=== PATIENT | male | born 1935 | race Caucasian/White ===

== ENCOUNTER 2017-10-13 17:38 | Inpatient (IN) | payer MEDICARE, OTHER ==
[2017-10-13] VITALS (7 sets, daily range): BP systolic 115–156; BP diastolic 51–97
[~2017-10-13] VITALS: Ht 177.8 cm; Wt 88.3 kg
[~2017-10-13 17:38] MED LIST: COREG CR10 MG PO; COREG25 MG PO; Coumadin5 MG PO; JANTOVEN1 MG PO; LANOXIN0.125 MG PO; LASIX20 MG PO; LISINOPRIL2.5 MG PO; NEXIUM40 MG PO; POTASSIUM99 M5 PO; SPIRIVA -- 3018 MCG INH; SYMBICORT1 AE1 INH; SYNTHROID,LEVO50 MCG PO; TERAZOSIN HCL2 M1 PO; VITAMIN D2000 IU PO
[2017-10-13 18:25] LABS: BASO % 0.2 % (0.0-1.0); EOS # 0.2 10*3/uL (0.0-0.4); EOS % 1.3 % (1.0-4.0); HEMATOCRIT 44.2 % (42.0-52.0); HEMOGLOBIN 14.8 g/dl (14.0-18.0); LYMPH # 1.7 10*3/uL (1.3-4.4); LYMPH % 9.3 % (27.0-41.0); MEAN CELL VOLUME 88.8 fl (80.0-94.0); MEAN CORPUSCULAR HGB 29.7 pg (27.0-31.0); MEAN CORPUSCULAR HGB CONC 33.5 g/dl (33.0-37.0); MEAN PLATELET VOLUME 9.6 fl (9.6-12.3); MONO # 1.1 10*3/uL (0.1-1.0); MONO % 6.1 % (3.0-9.0); NEUT # 14.8 10*3/uL (2.3-7.9); NEUT % 82.5 % (47.0-73.0); PLATELET COUNT AUTOMATED 218 10*3/uL (130-400); RED BLOOD COUNT 4.98 10*6/uL (4.50-5.90); RED CELL DISTRI WIDTH 14.3 % (0-14.5); WHITE BLOOD COUNT 17.9 10*3/uL (4.8-10.8)
[2017-10-13 18:39] LABS: ACT PARTIAL THROMBO TIME 32.7 SECONDS (20.8-31.5); INTERNATIONAL NORM RATIO 2.3 (2.0-3.5)
[2017-10-13 18:44] LABS: ALBUMIN 3.7 gm/dl (3.1-4.5); ALKALINE PHOSPHATASE 91 U/L (45-117); BUN 20 mg/dl (7-24); CHLORIDE 105 mmol/L (98-107); CREATININE 1.48 mg/dL (0.70-1.30); LIPASE 157 U/L (73-393); POTASSIUM 4.1 mmol/L (3.5-5.1); SGOT/AST 17 IU/L (3-35); SGPT/ALT 33 U/L (12-78); SODIUM 139 mmol/L (136-145); TOTAL PROTEIN 7.6 gm/dL (6.4-8.2)
[2017-10-13 18:51] LABS: TROPONIN I < 0.015 ng/ml (<0.045)
[2017-10-13 19:18] LABS: BILIRUBIN NEGATIVE (NEGATIVE); BLOOD NEGATIVE (NEGATIVE); CLARITY CLEAR (CLEAR); COLOR YELLOW (YELLOW); GLUCOSE NEGATIVE (NEGATIVE); KETONE NEGATIVE (NEGATIVE); LEUKO ESTERASE NEGATIVE (NEGATIVE); NITRITE NEGATIVE (NEGATIVE); UROBILINOGEN 0.2 E.U./dl (0.2-1.0)
[2017-10-13 19:24] LABS: BACTERIA TRACE
[2017-10-13] MEDS ORDERED: CARVEDILOL12.5 MG PO (23:59)
[2017-10-14] MEDS ORDERED: COUMADIN4 M2 PO (00:09)
[2017-10-14] MEDS ORDERED: CARDIZEM120 MG PO (00:11)
[2017-10-14] MEDS ORDERED: MACRODANTIN100 M1 PO (00:11)
[2017-10-14] MEDS ORDERED: SPIRIVA RESPIMAT4 G1 INH (00:14)
[2017-10-14] MEDS ORDERED: VITAMIN C1000 M5 PO (00:15)
[2017-10-14 06:20] LABS: BASO % 0.2 % (0.0-1.0); EOS # 0.1 10*3/uL (0.0-0.4); EOS % 1.4 % (1.0-4.0); LYMPH % 20.6 % (27.0-41.0); MEAN CELL VOLUME 89.7 fl (80.0-94.0); MEAN CORPUSCULAR HGB 29.5 pg (27.0-31.0); MEAN CORPUSCULAR HGB CONC 32.9 g/dl (33.0-37.0); MEAN PLATELET VOLUME 9.6 fl (9.6-12.3); MONO # 0.7 10*3/uL (0.1-1.0); MONO % 7.4 % (3.0-9.0); NEUT # 6.7 10*3/uL (2.3-7.9); NEUT % 70.1 % (47.0-73.0); PLATELET COUNT AUTOMATED 183 10*3/uL (130-400); RED BLOOD COUNT 4.07 10*6/uL (4.50-5.90); RED CELL DISTRI WIDTH 14.4 % (0-14.5); WHITE BLOOD COUNT 9.6 10*3/uL (4.8-10.8)
[2017-10-14 06:21] LABS: INTERNATIONAL NORM RATIO 2.3 (2.0-3.5)
[2017-10-14 06:28] LABS: HEMATOCRIT 36.5 % (42.0-52.0)
[2017-10-14 06:46] LABS: ALBUMIN 2.6 gm/dl (3.1-4.5); ALKALINE PHOSPHATASE 64 U/L (45-117); BUN 16 mg/dl (7-24); CHLORIDE 111 mmol/L (98-107); CHOLESTEROL 150 mg/dL (<200); CREATININE 1.08 mg/dL (0.70-1.30); HDL CHOLESTEROL 37 mg/dl (40-60); LDL CHOLESTEROL 90 mg/dL (9-159); PHOSPHOROUS 2.4 mg/dL (2.5-4.9); POTASSIUM 3.9 mmol/L (3.5-5.1); SGOT/AST 13 IU/L (3-35); SGPT/ALT 25 U/L (12-78); SODIUM 143 mmol/L (136-145); TOTAL PROTEIN 5.9 gm/dL (6.4-8.2); TRIGLYCERIDES 114 mg/dl (<150); VLDL CHOLESTEROL 23 mg/dL (6-40)
[2017-10-14 08:00] VITALS: BP 118/64
[2017-10-14 08:38] LABS: VITAMIN D, 25-HYDROXY 56.7 ng/mL (30-100)
[2017-10-14] MEDS ORDERED: VITAMIN D-32000 UNI1 PO (11:41)
[2017-10-14] MEDS ORDERED: B12,B-12,B 12500 MC1 PO (11:45)
== END 2017-10-14 12:50 | disposition home or self-care (01) | DRG 682 ==
LOC: ED 17:38 → 5E 20:42 → EDHOLD 20:42 → 5E 21:02
PROVIDERS: Hospitalist; Physician Assistant
DX: N17.0 Acute kidney failure with tubular necrosis (principal); E43 Unspecified severe protein-calorie malnutrition; I48.2 Chronic atrial fibrillation; E87.2 Acidosis; I48.91 Unspecified atrial fibrillation; J44.9 Chronic obstructive pulmonary disease, unspecified; E86.0 Dehydration; R73.9 Hyperglycemia, unspecified; E53.8 Deficiency of other specified B group vitamins; E03.8 Other specified hypothyroidism; N40.0 Benign prostatic hyperplasia without lower urinary tract symptoms; K52.9 Noninfective gastroenteritis and colitis, unspecified; Z90.49 Acquired absence of other specified parts of digestive tract; Z88.1 Allergy status to other antibiotic agents; Z88.2 Allergy status to sulfonamides; Z88.8 Allergy status to other drugs, medicaments and biological substances; Z79.01 Long term (current) use of anticoagulants; Z79.899 Other long term (current) drug therapy; Z82.3 Family history of stroke; Z82.49 Family history of ischemic heart disease and other diseases of the circulatory system; Z80.9 Family history of malignant neoplasm, unspecified; Z85.89 Personal history of malignant neoplasm of other organs and systems; Z87.891 Personal history of nicotine dependence; Z68.27 Body mass index [BMI] 27.0-27.9, adult

== ENCOUNTER → 2018-10-06 | Outpatient (CLI) | payer MEDICARE, OTHER ==
[~2018-10-06] MED LIST changes: +B12,B-12,B 12500 MC1 PO; +CARDIZEM120 MG PO; +CARVEDILOL12.5 MG PO; +COUMADIN4 M2 PO; +MACRODANTIN100 M1 PO; +SPIRIVA RESPIMAT4 G1 INH; +VITAMIN C1000 M5 PO; +VITAMIN D-32000 UNI1 PO
[2018-10-06 13:06] LABS: FREE T4 0.72 ng/dl (0.76-1.46)
[2018-10-06 13:12] LABS: THYROID STIM HORMONE (HS) 2.67 uIU/ml (0.358-4.75)
[2018-10-07 04:11] LABS: TOTAL PROTEIN, SERUM 6.4 g/dL (6.0-8.5)
[2018-10-07 15:09] LABS: A/G RATIO 1.1 (0.7-1.7); ALBUMIN 3.4 g/dL (2.9-4.4); ALPHA-1-GLOBULIN 0.2 g/dL (0.0-0.4); ALPHA-2-GLOBULIN 0.8 g/dL (0.4-1.0); BETA GLOBULIN 1.1 g/dL (0.7-1.3); GAMMA GLOBULIN 0.9 g/dL (0.4-1.8); M-SPIKE Not Observed g/dL (Not Observed)
== END | disposition home or self-care (01) ==
LOC: LAB 12:12
PROVIDERS: Psychiatry & Neurology Neurology
DX: G60.9 Hereditary and idiopathic neuropathy, unspecified (principal); R73.09 Other abnormal glucose; R29.898 Other symptoms and signs involving the musculoskeletal system

== ENCOUNTER → 2023-03-22 | Outpatient (CLI) | payer MEDICARE, OTHER ==
[~2023-03-22] MED LIST changes: +CIPRO500 MG PO; -COUMADIN4 M2 PO; +Coumadin2 MG PO; +OXYGEN NAS; +POTASSIUM CHLO10 ME5 PO; -POTASSIUM99 M5 PO; +TRELEGY ELLIPT1 EACH INH; +VITAMIN E400 UNIT PO
== END | disposition home or self-care (01) ==
LOC: RESCLI 02:55
PROVIDERS: ATTEND Student in an Organized Health Care Education/Training Program
DX: J44.9 Chronic obstructive pulmonary disease, unspecified (principal); I48.91 Unspecified atrial fibrillation; I10 Essential (primary) hypertension; K21.9 Gastro-esophageal reflux disease without esophagitis; K76.0 Fatty (change of) liver, not elsewhere classified; N40.0 Benign prostatic hyperplasia without lower urinary tract symptoms; J45.909 Unspecified asthma, uncomplicated; Z79.01 Long term (current) use of anticoagulants; Z79.899 Other long term (current) drug therapy

== ENCOUNTER → 2024-06-06 | Outpatient (CLI) | payer MEDICARE, OTHER | END | disposition home or self-care (01) | LOC: RESCLI 02:01 | PROVIDERS: ATTEND Internal Medicine | DX: I10 Essential (primary) hypertension (principal); J44.9 Chronic obstructive pulmonary disease, unspecified; I48.91 Unspecified atrial fibrillation; N40.0 Benign prostatic hyperplasia without lower urinary tract symptoms; E56.9 Vitamin deficiency, unspecified; R60.9 Edema, unspecified; K21.9 Gastro-esophageal reflux disease without esophagitis; K59.00 Constipation, unspecified; M19.90 Unspecified osteoarthritis, unspecified site; E78.5 Hyperlipidemia, unspecified; I25.10 Atherosclerotic heart disease of native coronary artery without angina pectoris; Z98.890 Other specified postprocedural states; Z79.899 Other long term (current) drug therapy; Z87.891 Personal history of nicotine dependence; Z88.1 Allergy status to other antibiotic agents; Z88.8 Allergy status to other drugs, medicaments and biological substances ==

== ENCOUNTER 2024-09-07 16:19 | Emergency (ER) | payer MEDICARE, OTHER ==
[2024-09-07 16:27] VITALS: BP 176/86
[2024-09-07] MEDS ORDERED: TRELEGY ELLIPT1 EACH PO (16:33)
[2024-09-07] MEDS ORDERED: LASIX20 MG PO (16:33)
[2024-09-07] MEDS ORDERED: TRAMADOL HCL50 MG PO (16:34)
[2024-09-07] MEDS ORDERED: CARDIZEM30 MG PO (16:34)
[2024-09-07] MEDS ORDERED: TERAZOSIN HCL2 M1 PO (16:35)
[2024-09-07] MEDS ORDERED: DIGOXIN125 MCG PO (16:35)
[2024-09-07] MEDS ORDERED: MORPHINE Sulfate 2 MG/ML SYR IV ONE (16:35)
[2024-09-07] MEDS ORDERED: methylPREDNISolone sod succ 125 MG VIAL IV ONE (16:35)
[2024-09-07] MEDS ORDERED: COREG3.125 MG PO (16:35)
[2024-09-07] MEDS ORDERED: Ondansetron Hydrochloride 4 MG/2 ML VIAL IV ONE (16:35)
[2024-09-07] MEDS ORDERED: SODIUM CHLORIDE 0.9% 1,000 ML IV ONE (16:35)
[2024-09-07] MEDS ORDERED: Coumadin2 MG PO (16:36)
[2024-09-07] MEDS ORDERED: POTASSIUM CHLO10 MEQ PO (16:46)
[2024-09-07 16:53] LABS: BASO % 0.5 % (0.0-1.0); EOS # 0.1 10*3/uL (0.0-0.4); EOS % 0.9 % (1.0-4.0); HEMATOCRIT 39.2 % (42.0-52.0); MEAN CELL VOLUME 90.5 fl (80.0-94.0); MEAN CORPUSCULAR HGB 29.3 pg (27.0-31.0); MEAN CORPUSCULAR HGB CONC 32.4 g/dl (33.0-37.0); MEAN PLATELET VOLUME 9.9 fl (9.6-12.3); MONO # 0.8 10*3/uL (0.1-1.0); MONO % 10.6 % (3.0-9.0); NEUT # 5.4 10*3/uL (2.3-7.9); NEUT % 70.5 % (47.0-73.0); PLATELET COUNT AUTOMATED 284 10*3/uL (130-400); RED BLOOD COUNT 4.33 10*6/uL (4.50-5.90); RED CELL DISTRI WIDTH 14.5 % (0-14.5); WHITE BLOOD COUNT 7.6 10*3/uL (4.8-10.8)
[2024-09-07 17:11] LABS: BUN 14 mg/dl (9-23); CHLORIDE 103 mmol/L (98-107); POTASSIUM 3.8 mmol/L (3.4-5.1)
[2024-09-07] MEDS ORDERED: PERCOCET 5-3251 EACH PO (18:09)
[2024-09-07] MEDS ORDERED: PREDNISONE20 M1 PO (18:09)
== END 2024-09-07 18:10 | disposition home or self-care (01) ==
LOC: ED 16:19
PROVIDERS: Emergency Medicine
DX: M06.9 Rheumatoid arthritis, unspecified (principal); J44.9 Chronic obstructive pulmonary disease, unspecified; K21.9 Gastro-esophageal reflux disease without esophagitis; I10 Essential (primary) hypertension; E78.5 Hyperlipidemia, unspecified; I48.91 Unspecified atrial fibrillation; Z98.890 Other specified postprocedural states; Z90.49 Acquired absence of other specified parts of digestive tract; Z95.5 Presence of coronary angioplasty implant and graft; Z87.891 Personal history of nicotine dependence